=== PATIENT | female | born 1950 | race Native Hawaiian/Other Pacific Islander ===

== ENCOUNTER 2017-03-06 13:24 | Outpatient (CLI) | payer OTHER ==
[~2017-03-06 13:24] MED LIST: GLIP10TA55 PO; IBUPROFEN200 M1 PO; ONGLYZA5 MG OR; SIMV20TA2 PO; TIROSINT50 MCG OR
== END 2017-03-06 20:00 | disposition home or self-care (01) ==
LOC: RAD 13:24
DX: M81.0 Age-related osteoporosis without current pathological fracture (principal)

== ENCOUNTER 2020-09-14 14:58 | Outpatient (CLI) | payer OTHER | END 2020-09-14 20:05 | disposition home or self-care (01) | LOC: INF 14:58 | PROVIDERS: ATTEND Internal Medicine Endocrinology, Diabetes & Metabolism | DX: Z23 Encounter for immunization (principal) | CPT/HCPCS: 96372 ==

== ENCOUNTER 2020-10-10 10:39 | Outpatient (CLI) | payer OTHER | END 2020-10-10 19:18 | disposition home or self-care (01) | LOC: INF 10:39 | PROVIDERS: ATTEND Internal Medicine | DX: Z23 Encounter for immunization (principal) | CPT/HCPCS: 96372 ==